=== PATIENT | male | born 1985 | race Caucasian/White ===

== ENCOUNTER 2018-11-29 02:58 | Emergency (ER) | payer OTHER ==
[~2018-11-29] VITALS: Ht 185.4 cm; Wt 70.3 kg
[~2018-11-29 02:58] MED LIST: ALPR1TAB2 PO; AMPH10TA4 PO; LORA2TAB95 PO; TRAZ-214 PO
--- NOTE | 2018-11-29 03:25 | NUR ---
PT BIBSELF C/O BILATERAL LOWER EXT AND BILATERAL UPPER EXT SWELLING AND REDNESS. PT ADMITS TO INJECTING DRUGS 2 DAYS AGO. PT AXO4. RESPIRATIONS EVEN AND UNLABORED. PT PUT ON THE GOLF CART ATTENDANT AND PULSE OX.
[2018-11-29] MEDS ORDERED: ONDANSETRON HCL/PF 4 MG/2 ML VIAL IVP ONE (04:00)
[2018-11-29] MEDS ORDERED: VANCOMYCIN 1 GM in IV D5W 250 ML IV ONE (04:00)
[2018-11-29] MEDS ORDERED: MORPHINE SULFATE INJ 2 MG/ML DISP.SYRIN IV ONE (04:00)
[2018-11-29] MEDS ORDERED: IV NS 0.9% 500 ML BAG IV ONE (04:00)
[2018-11-29 04:09] LABS: BASOPHILS # (AUTO) 0.1 /CMM (0.0-0.2); BASOPHILS % (AUTO) 0.8 % (0.0-2.0); EOSINOPHILS % (AUTO) 0.6 % (0.0-6.0); HEMATOCRIT 36 % (39-51); HEMOGLOBIN 12.2 g/dL (13.5-17.5); LYMPHOCYTES # (AUTO) 0.7 /CMM (0.8-4.8); LYMPHOCYTES % (AUTO) 8.1 % (20.0-44.0); MEAN CORPUSCULAR HGB CONC 34 g/dl (31.0-36.0); MEAN CORPUSCULAR VOLUME 85 fL (80-96); MONOCYTES # (AUTO) 0.7 /CMM (0.1-1.30); NEUTROPHILS # (AUTO) 7.4 /CMM (1.8-8.9); NEUTROPHILS % (AUTO) 82.5 % (43.0-81.0); PLATELET COUNT (AUTO) 344 /CMM (150-450); RED BLOOD CELL COUNT(AUTO) 4.24 MIL/uL (4.5-6.0); WHITE BLOOD COUNT (AUTO) 8.9 K/uL (4.3-11.0)
[2018-11-29] MEDS ORDERED: VANCOMYCIN 1 GM VIAL ONE (04:10)
[2018-11-29] MEDS ORDERED: ONDANSETRON HCL/PF 4 MG/2 ML VIAL ONE (04:10)
[2018-11-29] MEDS ORDERED: MORPHINE SULFATE INJ 4 MG/ML DISP.SYRIN ONE (04:11)
[2018-11-29 04:19] LABS: CALCIUM, SERUM 8.8 mg/dL (8.5-10.1); CREATININE 1.2 mg/dL (0.6-1.3); POTASSIUM 3.4 mmol/L (3.5-5.1)
--- NOTE | 2018-11-29 04:37 | NUR ---
PT RESTLESS AND ANXIOUS IN BED, YELLING AND SCREAMING.
--- NOTE | 2018-11-29 05:34 | NUR ---
Patient discharged to home in stable condition. Written and verbal after care instructions given. Patient verbalizes understanding of instruction. IV removed. Catheter intact and site benign. Pressure and 4x4 applied to site. No bleeding noted.
[2018-11-29 19:10] VITALS: BP 133/84
== END 2018-11-29 05:35 | disposition home or self-care (01) ==
LOC: ER 02:59
DX: L03.116 Cellulitis of left lower limb (principal); L03.115 Cellulitis of right lower limb; F17.200 Nicotine dependence, unspecified, uncomplicated; Z76.5 Malingerer [conscious simulation]; Z90.89 Acquired absence of other organs; Z79.899 Other long term (current) drug therapy
CPT/HCPCS: 36415; 80048; 83605; 85025; 85730; 87040 ×2; 87077; 96365; 96375; 99283; J2270; J2405; J3370; J7040

== ENCOUNTER 2018-12-04 02:38 | Emergency (ER) | payer OTHER ==
[~2018-12-04] VITALS: Ht 185.4 cm; Wt 70.3 kg
--- NOTE | 2018-12-04 03:01 | NUR ---
PT BIBSELF C/C R FOOT CELLULITIS X5DAYS, LOST MEDS YESTERDAY. SEEN HERE 3 DAYS AGO. PT ADMITS TO HEROIN USE BUT DENIES INJECTING IN FOOT. PT AOX4. NAD NOTED. RESP EVEN AND UNLABORED. PT AMBULATORY WITH CANE. UNABLE TO BEAR WEIGHT ON R LEG. AFEBRILE. PT ON MONITOR IN BED 1. WILL CONTINUE TO MONITOR.
--- NOTE | 2018-12-04 03:32 | NUR ---
BLOOD DRAWN AND GIVEN TO LAB
--- NOTE | 2018-12-04 03:37 | NUR ---
TECH AT BEDSIDE FOR EKG
[2018-12-04 03:41] LABS: BASOPHILS % (AUTO) 0.3 % (0.0-2.0); EOSINOPHILS % (AUTO) 0.8 % (0.0-6.0); HEMATOCRIT 31 % (39-51); HEMOGLOBIN 10.3 g/dL (13.5-17.5); LYMPHOCYTES # (AUTO) 0.4 /CMM (0.8-4.8); LYMPHOCYTES % (AUTO) 5.3 % (20.0-44.0); MEAN CORPUSCULAR HGB CONC 33 g/dl (31.0-36.0); MEAN CORPUSCULAR VOLUME 85 fL (80-96); MONOCYTES # (AUTO) 0.2 /CMM (0.1-1.30); MONOCYTES % (AUTO) 2.8 % (2.0-12.0); NEUTROPHILS # (AUTO) 6.5 /CMM (1.8-8.9); NEUTROPHILS % (AUTO) 90.8 % (43.0-81.0); PLATELET COUNT (AUTO) 450 /CMM (150-450); RED BLOOD CELL COUNT(AUTO) 3.66 MIL/uL (4.5-6.0); WHITE BLOOD COUNT (AUTO) 7.1 K/uL (4.3-11.0)
[2018-12-04 03:51] LABS: CALCIUM, SERUM 8.4 mg/dL (8.5-10.1); CREATININE 0.9 mg/dL (0.6-1.3); POTASSIUM 3.5 mmol/L (3.5-5.1)
[2018-12-04 04:47] VITALS: BP 138/79
--- NOTE | 2018-12-04 04:47 | NUR ---
IV removed. Catheter intact and site benign. Pressure and 4x4 applied to site. No bleeding noted.Patient discharged to home in stable condition. Rx and Written and verbal after care instructions given. Patient verbalizes understanding of instruction.
== END 2018-12-04 04:48 | disposition home or self-care (01) ==
LOC: ER 02:43
DX: L03.115 Cellulitis of right lower limb (principal); F10.10 Alcohol abuse, uncomplicated; F17.200 Nicotine dependence, unspecified, uncomplicated; Y90.9 Presence of alcohol in blood, level not specified; Z90.89 Acquired absence of other organs
CPT/HCPCS: 36415; 80048-TC; 83605-TC; 85025-TC; 87040-TC